=== PATIENT | male | born 1940 | race Caucasian/White ===

== ENCOUNTER 2017-08-05 10:27 | Inpatient (IN) ==
[2017-08-05] MEDS ORDERED: LEVOFLOXACIN INJ 750 MG in PREMIX 1 EACH IV STA (10:48)
[2017-08-05] MEDS ORDERED: methylPREDNISolone SOD SUC 40 MG/1 ML VIAL IV STA (10:48)
[2017-08-05] MEDS ORDERED: ALBUTEROL/IPRATROPIUM 3 ML NEB RESP TX STA (10:48)
[2017-08-05] MEDS ORDERED: methylPREDNISolone SOD SUC 40 MG/1 ML VIAL ONE (10:56)
[2017-08-05 11:16] LABS: Basophils % 0.2 % (0.0-0.8); Hemoglobin 13.7 GM/DL (14.0-18.0); Immature Granulocytes % 0.4 %; Immature Granulocytes Absolute 0.05 #; Lymphocytes # 1.3 10*3/uL (1.4-4.0); Lymphocytes % 11.1 % (21.2-54.2); Mean Corpuscular HGB Conc 31.9 GM/DL (32-36); Mean Corpuscular Hemoglobin 28 PG (27-34); Mean Corpuscular Volume 86.7 FL (87-102); Monocytes # 1.4 10*3/uL (0.11-0.8); Monocytes % 11.4 % (1.7-12.7); Neutrophils # 9.3 10*3/uL (1.4-7.4); Neutrophils % 76.9 % (38.7-73.9); Platelet Count 190 T/CUMM (130-400); Red Blood Count 4.96 MC/CUMM (3.8-5.5); Red Cell Distribution Width 14.8 % (9.3-17.3); White Blood Count 12.1 T/CUMM (4-12)
[2017-08-05] MEDS ORDERED: LEVOFLOXACIN INJ 0 ML IV ONE (11:19)
--- NOTE | 2017-08-05 11:25 | XRay Report ---
History: Shortness of breath Date: 08/05/2017 Study: Chest x-ray AP portable Comparison exam: April 04, 2016 There are stable mild cardiomegaly. The mediastinal contours are unchanged. The pulmonary vasculature is not engorged. A left subclavian multiple lead transvenous pacemaker/fibular device is generally intact and unchanged. There is no gross pleural effusion. There is some minor strandy subsegmental atelectasis in the left lung base. The lungs are otherwise clear for shallow breath. Osseous structures are unchanged. Impression: Mild strandy subsegmental atelectasis in the left lung base. Mild inflammatory infiltrate cannot be excluded. Shallow inspiration. Otherwise unchanged PROCEDURE INTERPRETED AT [facility] DEPARTMENT OF RADIOLOGY Final Report Signed by: Dr. Mary Ellen Murray
--- NOTE | 2017-08-05 11:45 | Emergency Department Note ---
Alondra Lerma Rolonda, am scribing for, and in the presence of, Rolando Haney MD 10:55. Lyndon Lerma Phillip K, MD, personally performed the services described in this documentation, ascribed by Beronica Cantu in my presence, and it is both accurate and complete . Arrival - Arrival Chief Complaint: Upper Respiratory Stated Complaint: sob,body ache,no sleep x3 days ED Nursing Triage Note: cough congestion body aches since saturday. pt wheezing in triage. Mode of Arrival: Wheelchair Limitations: No Limitations, Language Barrier Source: Old Records Reviewed, RN Notes Reviewed - History of Present Illness HPI Narrative: Pt is a 77 y/o male who presents to the ED for further evaluation of upper respiratory issues with an onset of x3 days. Pt has a PMHx of HTN and Asthma. He states that he has a cough with production and he is on his 9th bottle of collecting sputum. Pt states that he was seen at the [place] clinic this morning, was given a breathing tx, and was referred here to the ED. He denies being around anyone who has been ill. Pt confirms associated sxs of wheezing,fever, and body aches. At time of triage pt's temperature was 99.3. Pt states that he has a breathing machine at home but he has not used it in days. No other complaint/pain in ED. Onset (ago): day(s) Consistency: constant Severity: mild, moderate Severity scale (1-10): 4 Allergies/Adverse Reactions: Allergies Allergy/AdvReac Type Severity Reaction Status Date / Time No Known Allergies Allergy Verified 03/03/15 09:00 Home Medications: Home Medications Medication Instructions Recorded Confirmed Type Albuterol Inhaler [Proventil 1 puff INH Q4H PRN 08/05/17 08/05/17 History Inhaler] Allopurinol 100 mg PO BID 08/05/17 08/05/17 History Aspirin EC Tab 81 mg PO DAILY 08/05/17 08/05/17 History Betamethasone Dipropionate 1 applic TOP BID 08/05/17 08/05/17 History [Betamethasone Dipropionate 0.05% Cream] Budesonide/Formoterol 160-4.5 1 puff INH BID 08/05/17 08/05/17 History [Symbicort 160-4.5] Cholecalciferol [Vitamin D3] 2,000 unit PO DAILY 08/05/17 08/05/17 History Cyanocobalamin Inj [Vitamin B12 1,000 mcg IM Q30D 08/05/17 08/05/17 History Inj] Donepezil HCl 10 mg PO DAILY 08/05/17 08/05/17 History Fluticasone/Salmeterol 100-50 1 puff INH BID 08/05/17 08/05/17 History [Advair 100-50] Furosemide Tab [Lasix Tab] 20 mg PO DAILY 08/05/17 08/05/17 History Gabapentin Cap/Tab [Neurontin 300 mg PO BID 08/05/17 08/05/17 History Cap/Tab] Loratadine Tab [Claritin Tab] 10 mg PO DAILY PRN 08/05/17 08/05/17 History Metoprolol Tartrate 12.5 mg PO BID 08/05/17 08/05/17 History Montelukast Sodium 10 mg PO DAILY 08/05/17 08/05/17 History Multivitamin with Minerals 1 each PO DAILY 08/05/17 08/05/17 History [Multivitamins with Minerals] [place]-3/Dha/Epa/Fish Oil [Fish Oil 1 each PO DAILY 08/05/17 08/05/17 History 1,000 mg Softgel] Omeprazole 20 mg PO DAILY 08/05/17 08/05/17 History Roflumilast [Daliresp] 500 mcg PO DAILY 08/05/17 08/05/17 History Simvastatin 40 mg PO DAILY 08/05/17 08/05/17 History Tamsulosin [Flomax] 0.4 mg PO PC SUPPER 08/05/17 08/05/17 History Tiotropium Inhalation [Spiriva 18 mcg INH DAILY 08/05/17 08/05/17 History Handihaler] Valsartan 80 mg PO BEDTIME 08/05/17 08/05/17 History Review of System - Review of System 12 point system: reviewed and no additional remarkable complaints except as stated - Review of System Constitutional: Present: fever, weakness (body aches) Eyes: Absent: discharge Head/Ears/Nose/Throat: Absent: earache Respiratory: Present: cough (with production), wheezing Gastrointestinal: Absent: nausea Genitourinary male: Absent: dysuria Musculoskeletal: Absent: arm pain, back pain Skin: Absent: rash Neurological: Absent: headache Psychiatric: Absent: anxiety Endocrine: Absent: cold intolerance Hematological/Lymphatic: Absent: easy bleeding Allergic/Immunologic: Absent: facial swelling Medical,Surgical,& Family Hx - Medical History Cardio: History of: Hypertension, Pacemaker Respiratory: History of: Asthma - Social History Smoking Status: Current every day smoker Exam Vital Signs: Vital Signs Temperature 99.3 F 08/05/17 10:32 Pulse Rate 100 H 08/05/17 11:19 Respiratory Rate 20 08/05/17 11:19 Blood Pressure 100/50 08/05/17 11:15 O2 Sat by Pulse Oximetry 95 08/05/17 11:19 - General General appearance: alert, in no apparent distress - Head Head exam: Present: atraumatic, normocephalic - Eye Eye exam: Present: PERRL, EOMI - ENT ENT exam: Present: mucous membranes moist. Absent: mucous membranes dry - Neck Neck exam: Present: full ROM. Absent: tenderness - Chest Chest inspection: Present: symmetric chest wall rise. Absent: tenderness - Respiratory Respiratory exam: Present: rales (bibasilar), wheezes (diffused expiratory). Absent: normal lung sounds bilaterally - Cardiovascular Cardiovascular exam: Present: normal rhythm, tachycardia - Abdominal Exam Abdominal exam: Present: soft, normal bowel sounds. Absent: tenderness - Extremities Exam Extremities exam: Present: full ROM. Absent: tenderness - Back Exam Back exam: Present: full ROM. Absent: tenderness - Neurological Exam Neurological exam: Present: alert, oriented X3, CN II-XII intact - Psychiatric Psychiatric exam: Present: normal affect, normal mood - Skin Skin exam: Present: warm, dry, intact, normal color. Absent: rash Course Course Narrative: Patient discussed with the hospitalist. Results - Labs CBC & BMP: 08/05/17 10:52 Lab Results: I have reviewed the patients labs Labs: Laboratory Tests 08/05/17 10:52 WBC 12.1 H RBC 4.96 Hgb 13.7 L Hct 43.0 MCV 86.7 L MCHC 31.9 L Neut % (Auto) 76.9 H Lymph % (Auto) 11.1 L Neut # (Auto) 9.3 H Lymph # (Auto) 1.3 L [place] # (Auto) 1.4 H - Diagnostic Findings Procedure: Chest x-ray: report reviewed by me (Mild strandy subsegmental atelectasis in the left lung base. Mild inflammatory cannot be excluded. Shallow inspiration. Otherwise unchanged.) Disposition Clinical Impression: Left lower lobe pneumonia, Asthma with acute exacerbation Case discussed with: patient Disposition: Still a Patient Condition: Guarded Additional Instructions: Admit to the hospitalist.
[2017-08-05 11:50] LABS: Calcium 9.6 MG/DL (8.5-10.1); Osmolality,Calculated 279.7 MOS/KG (273-304); Potassium 3.7 MMOL/L (3.5-5.1)
[2017-08-05] MEDS ORDERED: ACETAMINOPHEN 325 MG TABLET PO PRN (13:56)
[2017-08-05] MEDS ORDERED: LORATADINE 10 MG TABLET PO PRN (14:00)
[2017-08-05] MEDS ORDERED: ONDANSETRON 4 MG/2 ML VIAL IV PRN (14:00)
[2017-08-05] MEDS ORDERED: ALBUTEROL/IPRATROPIUM 3 ML NEB RESP TX PRN (15:00)
--- NOTE | 2017-08-05 15:04 | Hospitalist History & Physical ---
<Von Kim - Last Filed: 08/05/17 14:31> Assessment and Plan (1) Left lower lobe pneumonia Status: Acute Assessment and plan: Treat with IV antibiotics (Levaquin). Breathing treatments scheduled. IVF ordered. Current Visit: Yes (2) Asthma with acute exacerbation Status: Acute Assessment and plan: Restart home meds. Consult Dr. Angelo. IV steroids. Breathing treatments scheduled. Continue to monitor. Current Visit: Yes (3) Leukocytosis Status: Acute Assessment and plan: WBC 12.1. Blood cultures ordered stat. UA ordered. Recheck cbc in am. Current Visit: Yes History of Present Illness Chief complaint: cough and shortness of breath. History of present illness: Mr. Curtis is a 77 year old male white male patient with a history of asthma, hypertension, and a pacemaker that presented to the ED from [place] clinic for further evaluation of upper respiratory issues. Pt. stated that the symptoms began on Saturday with a cough and shortness of breath. Pt. reports using his albuterol inhaler for the shortness of breath but that it was only temporarily relieved. Pt. states that since that time, the cough has worsened and become productive (thick white) and the shortness of breath has progressed. Pt. reports a subjective fever, chills, but no night sweats. Pt. denies chest pain, nausea, vomiting, or diarrhea. Pt. reported to the [place] clinic this morning, received a treatment, and was referred here. Pt's temp in triage was 99.3. CXR showed 'mild strandy subsegmental atelectasis in the left lung base and mild inflammatory infiltrate' cannot be excluded. Pt's case has been discussed with ER physician and hospitalist Dr. Hector. Pt. has been accepted onto our service. Pt. will be admitted for treatment of asthma exacerbation and pneumonia. Home meds have been reviewed and reconciled. Home Medications Medication Instructions Recorded Confirmed Type Albuterol Inhaler [Proventil 1 puff INH Q4H PRN 08/05/17 08/05/17 History Inhaler] Allopurinol 100 mg PO BID 08/05/17 08/05/17 History Aspirin EC Tab 81 mg PO DAILY 08/05/17 08/05/17 History Betamethasone Dipropionate 1 applic TOP BID 08/05/17 08/05/17 History [Betamethasone Dipropionate 0.05% Cream] Budesonide/Formoterol 160-4.5 1 puff INH BID 08/05/17 08/05/17 History [Symbicort 160-4.5] Cholecalciferol [Vitamin D3] 2,000 unit PO DAILY 08/05/17 08/05/17 History Cyanocobalamin Inj [Vitamin B12 1,000 mcg IM Q30D 08/05/17 08/05/17 History Inj] Donepezil HCl 10 mg PO DAILY 08/05/17 08/05/17 History Fluticasone/Salmeterol 100-50 1 puff INH BID 08/05/17 08/05/17 History [Advair 100-50] Furosemide Tab [Lasix Tab] 20 mg PO DAILY 08/05/17 08/05/17 History Gabapentin Cap/Tab [Neurontin 300 mg PO BID 08/05/17 08/05/17 History Cap/Tab] Loratadine Tab [Claritin Tab] 10 mg PO DAILY PRN 08/05/17 08/05/17 History Metoprolol Tartrate 12.5 mg PO BID 08/05/17 08/05/17 History Montelukast Sodium 10 mg PO DAILY 08/05/17 08/05/17 History Multivitamin with Minerals 1 each PO DAILY 08/05/17 08/05/17 History [Multivitamins with Minerals] [place]-3/Dha/Epa/Fish Oil [Fish Oil 1 each PO DAILY 08/05/17 08/05/17 History 1,000 mg Softgel] Omeprazole 20 mg PO DAILY 08/05/17 08/05/17 History Roflumilast [Daliresp] 500 mcg PO DAILY 08/05/17 08/05/17 History Simvastatin 20 mg PO PC SUPPER 08/05/17 08/05/17 History Tamsulosin [Flomax] 0.4 mg PO PC SUPPER 08/05/17 08/05/17 History Tiotropium Inhalation [Spiriva 18 mcg INH DAILY 08/05/17 08/05/17 History Handihaler] Valsartan 80 mg PO BEDTIME 08/05/17 08/05/17 History Allergies Allergy/AdvReac Type Severity Reaction Status Date / Time No Known Allergies Allergy Verified 03/03/15 09:00 Medical,Surgical,& Family Hx - Medical History Cardio: History of: Cardiac Dysrhythmia, Hypertension, [place] (1996), Pacemaker No history of: Aneurysm, Cerebrovascular Disease, CHF Psychological: History of: Depression (PTSD) Neurology: No history of: Brain Aneurysm, Cerebral Hemorrhage, Cerebrovascular Accident , Cerebral Palsy, Dementia, Migraine, Multiple Sclerosis, Parkinson's Disease, Peripheral Neuropathy, Seizures, TIA, Vertigo, Neurologocal Cancer HEENT: History of: Dental Problems Rheumatology: History of;: Gout Respiratory: History of: Asthma Genitourinary: History of: Kidney Stones Gastrointestinal: History of: Hemorrhoids Musculoskeletal: History of: Back/Neck Problems - Surgical History Neurologic Surgeries: Patient denies: Brain Aneurysm, Cerebral Hemorrhage, Neurologic Surgery Abdominal Surgeries: Surgical HX of: Cholecystectomy - Family History Family History: Reports;: Family Heart Disease, Family Psychiatric Problems Denies;: Family Anesthesia Reaction - Social History Smoking Status: Former smoker Frequency of Alcohol Use: Rarely Type of Drug Use: None Marital Status: Lives With:: Spouse Functional capacity: uses cane/walker 12 point system: reviewed and no additional remarkable complaints except as stated - EENT Ears: Present: decreased hearing - Cardiovascular Cardiovascular: Absent: chest pain at rest - Respiratory Respiratory: Present: cough, dyspnea, wheezing, change in phlegm color. Absent : hemoptysis Exam - Constitutional Vitals: Period Temp Pulse Resp BP Sys/Bergeron Pulse Ox Last 24 Hr 98.8 F-99.3 F 96-103 18-26 100-147/48-80 93-98 General appearance: no acute distress, over weight - Head Head exam: Present: normal inspection, normocephalic - Eye Eye exam: Present: EOMI Pupils: Present: LYNN - Respiratory Respiratory exam: Present: wheezes. Absent: clear to auscultation bilaterally - Cardiovascular Cardiovascular exam: Present: regular rate and rhythm - GI/Abdominal GI/Abdominal exam: Present: normal bowel sounds, soft. Absent: tenderness - Extremities Exam Extremities exam: Present: normal capillary refill, edema (trace) - Neurological Exam Neurological exam: Present: alert, oriented X3 - Psychiatric Psychiatric exam: Present: normal affect, normal mood - Skin Skin exam: Present: normal color, warm, dry Results - Labs CBC & BMP: 08/05/17 10:52 08/05/17 10:52 Lab Results: I have reviewed the past 24 hour labs <Sandra Hector - Last Filed: 08/06/17 12:01> Assessment and Plan (1) Left lower lobe pneumonia Status: Acute Current Visit: Yes (2) Asthma with acute exacerbation Status: Acute Current Visit: Yes (3) Cardiomyopathy Status: Acute Current Visit: Yes (4) Sleep apnea Status: Acute Current Visit: Yes (5) Hyperlipidemia Status: Acute Current Visit: Yes History of Present Illness History of present illness: Mr. Curtis is a 77 year old male admitted for acute respiratory distress and pneumonia. Patient was seen, examined and discussed with the A[employer]IC[employer] IN[employer]. I agree with the current management. Exam - Constitutional Vitals: Period Temp Pulse Resp BP Sys/Bergeron Pulse Ox Last 24 Hr 97.3 F-98.8 F 67-103 16-20 105-142/54-80 90-98 Results - Labs CBC & BMP: 08/06/17 05:04 08/06/17 05:04
[2017-08-05] MEDS ORDERED: ALBUTEROL 2.5 MG/3 ML NEB RESP TX PRN (15:30)
[2017-08-05] MEDS: SODIUM CHLORIDE 0.9% 1,000 ML IV SCH (16:00)
[2017-08-05] MEDS: MULTIVITAMIN (BEROCCA) TABLET PO SCH (16:40)
[2017-08-05] MEDS: LEVOFLOXACIN INJ 750 MG in PREMIX 1 EACH IV SCH (17:27)
[2017-08-05] MEDS: TAMSULOSIN 0.4 MG CAPSULE PO SCH (17:36)
[2017-08-05] MEDS: methylPREDNISolone SOD SUC 40 MG/1 ML VIAL IV SCH ×2 (17:37→20:28)
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
[2017-08-05] MEDS: BUDESONIDE 0.5 MG/2 ML NEB RESP TX SCH (19:22)
[2017-08-05] MEDS: FLUTICASONE/SALMETEROL 100-50 DISKUS 14 DOSE INH SCH (20:28)
[2017-08-05] MEDS: GABAPENTIN 300 MG CAPSULE PO SCH (20:28)
[2017-08-05] MEDS: BUDESONIDE/FORMOTEROL 160-4.5 INHALER 6 GM INH SCH (20:28)
[2017-08-05] MEDS: METOPROLOL TARTRATE 25 MG TABLET PO SCH (20:29)
[2017-08-06 00:31] LABS: Apearance,Urine Slightly Hazy (Clear); Bilirubin,Urine Negative (Negative); Blood, Urine Negative (Negative); Glucose,Urine (UA) Negative (Negative); Ketones,Urine 5 mg/dL (Negative); Mucus,Urine Many /LPF (Occasional); Nitrite,Urine Negative (Negative); Protein,Urine 100 MG/DL; RBC,Urine 3 /HPF (0-4); Urine Color Amber (Yellow); Urine Specific Gravity 1.027 (1.001-1.035); WBC,Urine 1 /HPF (0-6)
[2017-08-06] MEDS: methylPREDNISolone SOD SUC 40 MG/1 ML VIAL IV SCH ×4 (02:04→21:12)
[2017-08-06 05:43] LABS: Basophils % 0.1 % (0.0-0.8); Hematocrit 38.6 VOL% (42.0-52.0); Hemoglobin 12.7 GM/DL (14.0-18.0); Immature Granulocytes % 0.9 %; Lymphocytes # 0.6 10*3/uL (1.4-4.0); Lymphocytes % 5.7 % (21.2-54.2); Mean Corpuscular HGB Conc 32.9 GM/DL (32-36); Mean Corpuscular Hemoglobin 28 PG (27-34); Mean Corpuscular Volume 84.5 FL (87-102); Mean Platelet Volume 10.4 FL (9.6-12.0); Monocytes # 0.3 10*3/uL (0.11-0.8); Monocytes % 2.6 % (1.7-12.7); Neutrophils # 10.1 10*3/uL (1.4-7.4); Neutrophils % 90.7 % (38.7-73.9); Platelet Count 177 T/CUMM (130-400); Red Blood Count 4.57 MC/CUMM (3.8-5.5); Red Cell Distribution Width 14.6 % (9.3-17.3); White Blood Count 11.2 T/CUMM (4-12)
[2017-08-06 06:12] LABS: Band Neutrophils 2 % (0-10); Burr Cells Slight; Hypochromasia 1+; Lymphocytes 6 % (20-55); Microcytosis Slight; Ovalocytes Slight; Platelet Estimate Normal; Segmented Neutrophils 88 % (50-85); Total Cells Counted 100
[2017-08-06 06:22] LABS: Calcium 9.2 MG/DL (8.5-10.1); Magnesium 2.3 MG/DL (1.8-2.4); Osmolality,Calculated 287.5 MOS/KG (273-304); Potassium 3.6 MMOL/L (3.5-5.1); Risk Ratio 3.11; Thyroid Stimulating Hormone 0.334 uIU/ml (0.358-3.74); VLDL CHOLESTEROL 15.6 MG/DL
[2017-08-06] MEDS: BUDESONIDE 0.5 MG/2 ML NEB RESP TX SCH ×2 (06:53→19:26)
[2017-08-06] MEDS ORDERED: IPRATROPIUM 500 MCG/2.5 ML NEB RESP TX SCH (07:00)
[2017-08-06] MEDS: PANTOPRAZOLE 40 MG TABLET PO SCH (09:10)
[2017-08-06] MEDS: METOPROLOL TARTRATE 25 MG TABLET PO SCH ×2 (09:10→21:13)
[2017-08-06] MEDS: MONTELUKAST 10 MG TABLET PO SCH (09:11)
[2017-08-06] MEDS: ASPIRIN EC 81 MG TABLET PO SCH (09:11)
[2017-08-06] MEDS: GABAPENTIN 300 MG CAPSULE PO SCH ×2 (09:11→21:13)
[2017-08-06] MEDS: SIMVASTATIN 40 MG TABLET PO SCH (09:11)
[2017-08-06] MEDS: DONEPEZIL 10 MG TABLET PO SCH (09:11)
[2017-08-06] MEDS: CHOLECALCIFEROL 1,000 UNIT TABLET PO SCH (09:11)
[2017-08-06] MEDS: FLUTICASONE/SALMETEROL 100-50 DISKUS 14 DOSE INH SCH ×2 (09:12→21:13)
[2017-08-06] MEDS: OMEGA 3 ACID ETHYL ESTERS 1 GM CAPSULE PO SCH (09:12)
[2017-08-06] MEDS: BUDESONIDE/FORMOTEROL 160-4.5 INHALER 6 GM INH SCH ×2 (09:12→21:13)
[2017-08-06] MEDS: ENOXAPARIN 30 MG/0.3 ML SYRINGE SUBCUT SCH (09:13)
--- NOTE | 2017-08-06 09:53 | XRay Report ---
XR chest 2V Indication: COPD, shortness of breath and cough. Chest 2 views: Comparison 08/05/2017. Continued reticular prominence of the left lung base noted. Right lung base is better aerated than previous with general decreased interstitial prominence of the lungs. Normal heart size and pacemaker are stable. Impression: Improved aeration of the lungs, likely decreased edema. Continued opacity left lung base, either pneumonia or atelectasis. PROCEDURE INTERPRETED AT [facility] DEPARTMENT OF RADIOLOGY Final Report Signed by: Salty Messina M.D.
--- NOTE | 2017-08-06 10:32 | Pulmonology Progress Note ---
Pulmonary - PN: Subj Interval history: Juan Velazquez, [facility] acting as scribe for Dr. Koffi Angelo Mr. Curtis is a 77-year-old white male who we saw in initial pulmonary consultation on 08/05/2017. At that time, our impressions were: 1. Acute left lower lung pneumonia. Probably bacterial 2. COPD/asthma 3. Hyperlipidemia 4. Chronic lumbago 5. Gastroesophageal reflux disease 6. 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 Biventricular assist device. 7. History of sick sinus syndrome that required cardiac pacemaker. 8. Past history of possible cognitive impairment that is improved over time with treatment. 9. Bilateral upper extremity tremor, greater on the right as compared to the left 10. 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 Markedly improved with CPAP 11. Past history of tobacco abuse. Stopped smoking 1993. 08/06/2017. Patient was seen today along with Elizabeth Ronquillo RN. Patient's chest x-ray continues to show an acute left lower lobe pneumonia, however, it is slowly improving with better aeration. Sputum for Gram stain, culture and sensitivity is pending. Cold agglutinins are negative. Legionella, pro- calcitonin, and urine antigen for strep pneumoniae are pending. On chest exam he continues to have loose large airway congestion. He is receiving inhalation therapy. We have asked him to be ambulatory and he agrees. Medications have been reviewed. We made no changes today. Labs been reviewed. White count has fallen to 11,200 with 90.7% segs; H&H 12.7/ 38.6; platelet count 177,000; creatinine has improved to 1.50, BUN 33, electrolytes are normal; hemoglobin A1c 5.6%; calcium 9.2; TSH is low at 0.334 but free T4 is normal at 1.46; fasting lipoprotein profile shows a total cholesterol of 146, LDL 84, HDL 47, and triglycerides 78; BNP 24 Exam (Progress Note) - Constitutional Vitals: Period Temp Pulse Resp BP Sys/Bergeron Pulse Ox Last 24 Hr 97.3 F-99.3 F 67-103 16-26 100-147/48-80 90-98 Exam: Chest... See above Heart no gallop Abdomen is obese, but nontender and nondistended; bowel sounds are positive 4 Extremities with nothing to suggest acute deep venous thrombophlebitis Psychiatric oriented 3 Neurologic long-term motor function is intact Plan: Continue present treatment. Follow-up pending lab results when available. Follow up sputum Gram stain, culture and sensitivities when available. See orders. Results - Labs CBC & BMP: 08/06/17 05:04 08/06/17 05:04
[2017-08-06] MEDS: SODIUM CHLORIDE 0.9% 1,000 ML IV SCH (10:38)
--- NOTE | 2017-08-06 10:46 | Hospitalist Progress Note ---
Assessment and Plan (1) Left lower lobe pneumonia Status: Acute Assessment and plan: will continue with IV antibiotics,negative for influenza Aand B. Pulm is following Current Visit: Yes (2) Asthma with acute exacerbation Status: Acute Assessment and plan: continue with steroids, bronchodilators and antibiotics Current Visit: Yes (3) Cardiomyopathy Status: Acute Assessment and plan: Severe cardiomyopathy with ejection fraction 10%.Appears stable. Patient has a pacemaker. 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 Markedly improved with CPAP Current Visit: Yes (5) Hyperlipidemia Status: Acute Assessment and plan: on statins Current Visit: Yes Hospitalist: Subjective Interval history: Patient seen this am,he is still wheezing but feels much better. Exam - Constitutional Vitals: Period Temp Pulse Resp BP Sys/Bergeron Pulse Ox Last 24 Hr 97.3 F-98.8 F 67-103 16-20 100-142/48-80 90-98 General appearance: no acute distress - Head Head exam: Present: normal inspection - Eye Eye exam: Present: EOMI - ENT ENT exam: Present: normal exam - Respiratory Respiratory exam: Present: rhonchi, wheezes - Cardiovascular Cardiovascular exam: Present: regular rate and rhythm - GI/Abdominal GI/Abdominal exam: Present: normal bowel sounds - Extremities Exam Extremities exam: Present: normal inspection - Neurological Exam Neurological exam: Present: alert, oriented X3 Results - Labs CBC & BMP: 08/06/17 05:04 08/06/17 05:04 Lab Results: I have reviewed the past 24 hour labs
[2017-08-06] MEDS: LEVOFLOXACIN INJ 750 MG in PREMIX 1 EACH IV SCH (14:44)
[2017-08-06] MEDS: MULTIVITAMIN (BEROCCA) TABLET PO SCH (16:14)
[2017-08-06] MEDS: TAMSULOSIN 0.4 MG CAPSULE PO SCH (17:56)
[2017-08-07] MEDS: methylPREDNISolone SOD SUC 40 MG/1 ML VIAL IV SCH ×4 (01:38→21:12)
[2017-08-07 05:15] LABS: Basophils % 0.1 % (0.0-0.8); Hematocrit 34.9 VOL% (42.0-52.0); Hemoglobin 11.6 GM/DL (14.0-18.0); Immature Granulocytes % 1.4 %; Immature Granulocytes Absolute 0.22 #; Lymphocytes # 0.9 10*3/uL (1.4-4.0); Lymphocytes % 5.7 % (21.2-54.2); Mean Corpuscular HGB Conc 33.2 GM/DL (32-36); Mean Corpuscular Hemoglobin 28 PG (27-34); Mean Corpuscular Volume 84.1 FL (87-102); Mean Platelet Volume 10.1 FL (9.6-12.0); Monocytes # 0.6 10*3/uL (0.11-0.8); Monocytes % 3.5 % (1.7-12.7); Neutrophils # 14.3 10*3/uL (1.4-7.4); Neutrophils % 89.3 % (38.7-73.9); Platelet Count 184 T/CUMM (130-400); Red Blood Count 4.15 MC/CUMM (3.8-5.5); Red Cell Distribution Width 14.6 % (9.3-17.3)
[2017-08-07 06:02] LABS: Calcium 8.5 MG/DL (8.5-10.1); Magnesium 2.3 MG/DL (1.8-2.4); Potassium 3.7 MMOL/L (3.5-5.1)
[2017-08-07 06:39] LABS: Band Neutrophils 4 % (0-10); Hypochromasia Slight; Lymphocytes 3 % (20-55); Platelet Estimate Adequate; Segmented Neutrophils 93 % (50-85); Total Cells Counted 100
[2017-08-07] MEDS: BUDESONIDE 0.5 MG/2 ML NEB RESP TX SCH ×2 (08:45→19:15)
[2017-08-07] MEDS: SODIUM CHLORIDE 0.9% 1,000 ML IV SCH (09:01)
[2017-08-07] MEDS: ASPIRIN EC 81 MG TABLET PO SCH (09:02)
[2017-08-07] MEDS: CHOLECALCIFEROL 1,000 UNIT TABLET PO SCH (09:02)
[2017-08-07] MEDS: BUDESONIDE/FORMOTEROL 160-4.5 INHALER 6 GM INH SCH ×2 (09:02→21:14)
[2017-08-07] MEDS: FLUTICASONE/SALMETEROL 100-50 DISKUS 14 DOSE INH SCH ×2 (09:02→21:14)
[2017-08-07] MEDS: ENOXAPARIN 30 MG/0.3 ML SYRINGE SUBCUT SCH (09:02)
[2017-08-07] MEDS: MONTELUKAST 10 MG TABLET PO SCH (09:03)
[2017-08-07] MEDS: OMEGA 3 ACID ETHYL ESTERS 1 GM CAPSULE PO SCH (09:03)
[2017-08-07] MEDS: GABAPENTIN 300 MG CAPSULE PO SCH ×2 (09:03→21:13)
[2017-08-07] MEDS: SIMVASTATIN 40 MG TABLET PO SCH (09:03)
[2017-08-07] MEDS: METOPROLOL TARTRATE 25 MG TABLET PO SCH ×2 (09:03→21:13)
[2017-08-07] MEDS: PANTOPRAZOLE 40 MG TABLET PO SCH (09:03)
[2017-08-07] MEDS: DONEPEZIL 10 MG TABLET PO SCH (09:03)
--- NOTE | 2017-08-07 10:34 | Pulmonology Progress Note ---
Pulmonary - PN: Subj Interval history: Juan Velazquez, [facility], acting as scribe for Dr. Koffi Angelo Mr. Curtis is a 77-year-old white male who we saw in initial pulmonary consultation on 08/05/2017. At that time, our impressions were: 1. Acute left lower lung pneumonia. Probably bacterial 2. COPD/asthma 3. Hyperlipidemia 4. Chronic lumbago 5. Gastroesophageal reflux disease 6. 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 Biventricular assist device. 7. History of sick sinus syndrome that required cardiac pacemaker. 8. Past history of possible cognitive impairment that is improved over time with treatment. 9. Bilateral upper extremity tremor, greater on the right as compared to the left 10. 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 Markedly improved with CPAP 11. Past history of tobacco abuse. Stopped smoking 1993. 08/06/2017. Patient was seen today along with Elizabeth Ronquilol RN. Patient's chest x-ray continues to show an acute left lower lobe pneumonia, however, it is slowly improving with better aeration. Sputum for Gram stain, culture and sensitivity is pending. Cold agglutinins are negative. Legionella, pro- calcitonin, and urine antigen for strep pneumoniae are pending. On chest exam he continues to have loose large airway congestion. He is receiving inhalation therapy. We have asked him to be ambulatory and he agrees. Medications have been reviewed. We made no changes today. Labs been reviewed. White count has fallen to 11,200 with 90.7% segs; H&H 12.7/ 38.6; platelet count 177,000; creatinine has improved to 1.50, BUN 33, electrolytes are normal; hemoglobin A1c 5.6%; calcium 9.2; TSH is low at 0.334 but free T4 is normal at 1.46; fasting lipoprotein profile shows a total cholesterol of 146, LDL 84, HDL 47, and triglycerides 78; BNP 24 08/07/2017. The patient has more large airway wheeze today. He has more large airway congestion also. He needs to expectorate this, so we will add Pulmozyme twice daily. Once this clears, his wheezing were markedly improved. Overall, he feels improved since admission. Again, he is anticipating orthopedic surgery early next week and hopes to be discharged on Saturday. Will repeat chest x-ray tomorrow. Today's chest x-ray continues to show a left lower lobe and lingula infiltrate. Sputum Gram stain showed many gram-negative rods with many white blood cells, but sputum culture grew no organisms. Blood cultures are negative at day 1. Medications have been reviewed. We made no changes today other than the addition of Pulmozyme twice daily. Labs been reviewed. White count is 16,000 with 89.3% segs; H&H 11.6/34.9; platelet count 184,000; creatinine 1.40, BUN 38, electrolytes are normal Exam (Progress Note) - Constitutional Vitals: Period Temp Pulse Resp BP Sys/Bergeron Pulse Ox Last 24 Hr 97.2 F-98.9 F 69-103 16-20 122-149/56-78 89-96 Exam: Chest... See above Heart no gallop Abdomen is obese, but nontender and nondistended; bowel sounds are positive 4 Extremities with nothing to suggest acute deep venous thrombophlebitis Psychiatric oriented 3 Neurologic long-term motor function is intact Plan: Start Pulmozyme twice daily. Repeat chest x-ray tomorrow. Repeat CBC tomorrow. Continue other present treatment. See orders. Results - Labs CBC & BMP: 08/07/17 04:55 08/07/17 04:55
[2017-08-07] MEDS: DORNASE ALFA 2.5 MG/2.5 ML VIAL RESP TX SCH ×2 (10:45→19:20)
--- NOTE | 2017-08-07 11:27 | Hospitalist Progress Note ---
Assessment and Plan (1) Left lower lobe pneumonia Status: Acute Assessment and plan: Treat with IV antibiotics (Levaquin). Breathing treatments scheduled. IVF ordered. 08/07 DC IVF. Continue IV antibiotics. Current Visit: Yes (2) Asthma with acute exacerbation Status: Acute Assessment and plan: Restart home meds. Consult Dr. Angelo. IV steroids. Breathing treatments scheduled. Continue to monitor. Supplemental O2. 08/07 Pulmonary following. (Pulmozyme twice daily was added. CXR for in am) Current Visit: Yes (3) Leukocytosis Status: Acute Assessment and plan: WBC 12.1. Blood cultures ordered stat. UA ordered. Recheck cbc in am. 08/07 WBC up to 16 today. Probably secondary to steroid use. Check UA Current Visit: Yes Hospitalist: Subjective Interval history: Patient seen and examined this morning. Labs and chart reviewed. No acute changes occurred overnight. Pt resting comfortably during encounter. Pt. states he is "100%" better than he was on Saturday. He still has wheezes present on auscultation and reports that his productive cough has resurfaced. Pt makes request for home O2 on discharge. We will continue current plan of treatment. Exam - Constitutional Vitals: Period Temp Pulse Resp BP Sys/Bergeron Pulse Ox Last 24 Hr 97.2 F-98.9 F 69-103 16-20 123-149/64-78 89-96 General appearance: no acute distress, over weight - Head Head exam: Present: normal inspection, normocephalic - Eye Eye exam: Present: EOMI Pupils: Present: LYNN - Neck Neck exam: Present: normal inspection - Respiratory Respiratory exam: Present: wheezes. Absent: clear to auscultation bilaterally - Cardiovascular Cardiovascular exam: Present: regular rate and rhythm - GI/Abdominal GI/Abdominal exam: Present: normal bowel sounds, soft. Absent: tenderness - Extremities Exam Extremities exam: Present: normal capillary refill, full ROM, edema (trace) - Neurological Exam Neurological exam: Present: alert, oriented X3 - Psychiatric Psychiatric exam: Present: normal affect, normal mood - Skin Skin exam: Present: normal color, warm, dry Results - Labs CBC & BMP: 08/07/17 04:55 08/07/17 04:55 Lab Results: I have reviewed the past 24 hour labs
[2017-08-07] MEDS: MULTIVITAMIN (BEROCCA) TABLET PO SCH (14:34)
[2017-08-07] MEDS: LEVOFLOXACIN INJ 750 MG in PREMIX 1 EACH IV SCH (14:35)
[2017-08-07] MEDS: TAMSULOSIN 0.4 MG CAPSULE PO SCH (18:17)
[2017-08-08] MEDS: methylPREDNISolone SOD SUC 40 MG/1 ML VIAL IV SCH ×3 (02:55→20:55)
[2017-08-08 06:25] LABS: Basophils % 0.3 % (0.0-0.8); Hematocrit 36.5 VOL% (42.0-52.0); Immature Granulocytes % 2.8 %; Immature Granulocytes Absolute 0.42 #; Lymphocytes # 0.9 10*3/uL (1.4-4.0); Lymphocytes % 5.8 % (21.2-54.2); Mean Corpuscular HGB Conc 32.9 GM/DL (32-36); Mean Corpuscular Hemoglobin 28 PG (27-34); Mean Corpuscular Volume 84.3 FL (87-102); Monocytes # 0.5 10*3/uL (0.11-0.8); Neutrophils # 13.2 10*3/uL (1.4-7.4); Neutrophils % 88.1 % (38.7-73.9); Platelet Count 177 T/CUMM (130-400); Red Blood Count 4.33 MC/CUMM (3.8-5.5); Red Cell Distribution Width 14.6 % (9.3-17.3)
[2017-08-08 07:01] LABS: Band Neutrophils 2 % (0-10); Lymphocytes 5 % (20-55); Segmented Neutrophils 89 % (50-85); Total Cells Counted 100
[2017-08-08 07:02] LABS: Hypochromasia Slight; Ovalocytes 1+; Platelet Estimate Normal
[2017-08-08] MEDS: BUDESONIDE 0.5 MG/2 ML NEB RESP TX SCH ×2 (07:26→20:21)
[2017-08-08] MEDS: DORNASE ALFA 2.5 MG/2.5 ML VIAL RESP TX SCH ×2 (07:36→20:21)
[2017-08-08] MEDS: PANTOPRAZOLE 40 MG TABLET PO SCH (08:51)
[2017-08-08] MEDS: CHOLECALCIFEROL 1,000 UNIT TABLET PO SCH (08:51)
[2017-08-08] MEDS: GABAPENTIN 300 MG CAPSULE PO SCH ×2 (08:51→20:56)
[2017-08-08] MEDS: DONEPEZIL 10 MG TABLET PO SCH (08:51)
[2017-08-08] MEDS: METOPROLOL TARTRATE 25 MG TABLET PO SCH ×2 (08:51→20:55)
[2017-08-08] MEDS: BUDESONIDE/FORMOTEROL 160-4.5 INHALER 6 GM INH SCH ×2 (08:52→20:56)
[2017-08-08] MEDS: MONTELUKAST 10 MG TABLET PO SCH (08:52)
[2017-08-08] MEDS: OMEGA 3 ACID ETHYL ESTERS 1 GM CAPSULE PO SCH (08:52)
[2017-08-08] MEDS: ASPIRIN EC 81 MG TABLET PO SCH (08:52)
[2017-08-08] MEDS: ENOXAPARIN 30 MG/0.3 ML SYRINGE SUBCUT SCH (08:52)
[2017-08-08] MEDS: FLUTICASONE/SALMETEROL 100-50 DISKUS 14 DOSE INH SCH ×2 (08:52→20:56)
[2017-08-08] MEDS: SIMVASTATIN 40 MG TABLET PO SCH (08:52)
--- NOTE | 2017-08-08 09:00 | XRay Report ---
XR chest 2V Date: 08/08/2017 4:00 AM History: Pneumonia Comparison: 08/06/2017 Technique: PA and lateral chest Findings: The heart is normal in size with stable left subclavian atrioventricular AICD. Reduced parenchymal findings at the left lung base with smaller left pleural effusion. Stable mediastinum and osseous structures. Impression: Improved pneumonia at the left lung base with reduced atelectasis and smaller small left pleural effusion. Stable left subclavian atrioventricular AICD. PROCEDURE INTERPRETED AT [facility] DEPARTMENT OF RADIOLOGY Final Report Signed by: Dr. Uzma Birmingham
--- NOTE | 2017-08-08 11:24 | Pulmonology Progress Note ---
Pulmonary - PN: Subj Interval history: Juan Velazquez, [facility], acting as scribe for Dr. Koffi Angelo Mr. Curtis is a 77-year-old white male who we saw in initial pulmonary consultation on 08/05/2017. At that time, our impressions were: 1. Acute left lower lung pneumonia. Probably bacterial 2. COPD/asthma 3. Hyperlipidemia 4. Chronic lumbago 5. Gastroesophageal reflux disease 6. 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 Biventricular assist device. 7. History of sick sinus syndrome that required cardiac pacemaker. 8. Past history of possible cognitive impairment that is improved over time with treatment. 9. Bilateral upper extremity tremor, greater on the right as compared to the left 10. 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 Markedly improved with CPAP 11. Past history of tobacco abuse. Stopped smoking 1993. 08/06/2017. Patient was seen today along with Elizabeth Ronquillo RN. Patient's chest x-ray continues to show an acute left lower lobe pneumonia, however, it is slowly improving with better aeration. Sputum for Gram stain, culture and sensitivity is pending. Cold agglutinins are negative. Legionella, pro- calcitonin, and urine antigen for strep pneumoniae are pending. On chest exam he continues to have loose large airway congestion. He is receiving inhalation therapy. We have asked him to be ambulatory and he agrees. Medications have been reviewed. We made no changes today. Labs been reviewed. White count has fallen to 11,200 with 90.7% segs; H&H 12.7/ 38.6; platelet count 177,000; creatinine has improved to 1.50, BUN 33, electrolytes are normal; hemoglobin A1c 5.6%; calcium 9.2; TSH is low at 0.334 but free T4 is normal at 1.46; fasting lipoprotein profile shows a total cholesterol of 146, LDL 84, HDL 47, and triglycerides 78; BNP 24 08/07/2017. The patient has more large airway wheeze today. He has more large airway congestion also. He needs to expectorate this, so we will add Pulmozyme twice daily. Once this clears, his wheezing were markedly improved. Overall, he feels improved since admission. Again, he is anticipating orthopedic surgery early next week and hopes to be discharged on Saturday. Will repeat chest x-ray tomorrow. Today's chest x-ray continues to show a left lower lobe and lingula infiltrate. Sputum Gram stain showed many gram-negative rods with many white blood cells, but sputum culture grew no organisms. Blood cultures are negative at day 1. Medications have been reviewed. We made no changes today other than the addition of Pulmozyme twice daily. Labs been reviewed. White count is 16,000 with 89.3% segs; H&H 11.6/34.9; platelet count 184,000; creatinine 1.40, BUN 38, electrolytes are normal 08/08/2017. Today we have discussed the case with Dr. Savage and coordinated our care. We both feel that it would probably be in the patient's best interest to put off his planned orthopedic surgery for another week or 2 and continue oral antibiotics[address] Dr. [facility]. However, if they cannot get to the patient in a timely manner we would agree to him proceeding next week with his knee replacement. Chest x-ray today shows that his previously noted infiltrate is clearing. He states that he is breathing better. He has remained afebrile. Medications have been reviewed. We made no changes. Labs been reviewed. White count is 15,000 with 80.1% segs; H&H 12.0/36.5; platelet count 177,000; pro-calcitonin obtained at admission was elevated at 0.69; Legionella is still pending Exam (Progress Note) - Constitutional Vitals: Period Temp Pulse Resp BP Sys/Bergeron Pulse Ox Last 24 Hr 97.2 F-97.7 F 57-77 18-22 116-137/58-78 91-99 Exam: Chest with less wheeze and less congestion Heart no gallop Abdomen is obese, but nontender and nondistended; bowel sounds are positive 4 Extremities with nothing to suggest acute deep venous thrombophlebitis Psychiatric oriented 3 Neurologic long-term motor function is intact Plan: Continue present treatment. The patient should be ready for discharge tomorrow. We will follow-up Dr. Savage's conversation with the [facility] regarding [facility]. Results - Labs CBC & BMP: 08/08/17 05:01 08/07/17 04:55
--- NOTE | 2017-08-08 11:52 | Hospitalist Progress Note ---
Assessment and Plan (1) Left lower lobe pneumonia Status: Acute Assessment and plan: 1)pneumonia and asthma- doing better each day. Plan for home tomorrow on steroid taper and antibiotics. Decrease steroids to 60mg q12h today. continue nebs, antibiotics. 2)knee surgery- his surgeon is going to rearrange the August schedule and let Mr Curtis know of a date later in August for his surgery so that he can recover fully prior to surgery. Current Visit: Yes (2) Asthma with acute exacerbation Status: Acute Current Visit: Yes (3) Cardiomyopathy Status: Acute Current Visit: Yes (4) Sleep apnea Status: Acute Current Visit: Yes (5) Hyperlipidemia Status: Acute Current Visit: Yes Hospitalist: Subjective Interval history: Mr Curtis is feeling good though he is still wheezing. I have coordinated care with Dr Angelo who agrees that he should be able to go home tomorrow. In addition [facility] called [facility] and spoke to a series of people including his orthopedic surgeon who asked me to let Mr Curtis know that he is working on rescheduling him for later in August and that he should receive a call from the [facility] to give him the new date in the next day or so. The people I spoke with at the [facility] were very helpful. Exam - Constitutional Vitals: Period Temp Pulse Resp BP Sys/Bergeron Pulse Ox Last 24 Hr 97.2 F-98.1 F 56-77 16-22 116-137/58-78 91-99 General appearance: no acute distress, over weight - Eye Eye exam: Present: EOMI. Absent: scleral icterus - Respiratory Respiratory exam: Present: wheezes (exp wheezing throughout) - Cardiovascular Cardiovascular exam: Present: regular rate and rhythm - GI/Abdominal GI/Abdominal exam: Present: normal bowel sounds, soft. Absent: tenderness - Extremities Exam Extremities exam: Absent: edema Results - Labs CBC & BMP: 08/08/17 05:01 08/07/17 04:55 Lab Results: I have reviewed the past 24 hour labs
[2017-08-08] MEDS: MULTIVITAMIN (BEROCCA) TABLET PO SCH (13:59)
[2017-08-08] MEDS: LEVOFLOXACIN INJ 750 MG in PREMIX 1 EACH IV SCH (14:00)
[2017-08-08] MEDS: TAMSULOSIN 0.4 MG CAPSULE PO SCH (17:48)
[2017-08-09] MEDS: BUDESONIDE 0.5 MG/2 ML NEB RESP TX SCH (07:17)
[2017-08-09] MEDS: DORNASE ALFA 2.5 MG/2.5 ML VIAL RESP TX SCH (07:17)
[2017-08-09] MEDS: methylPREDNISolone SOD SUC 40 MG/1 ML VIAL IV SCH (09:15)
[2017-08-09] MEDS: DONEPEZIL 10 MG TABLET PO SCH (09:16)
[2017-08-09] MEDS: METOPROLOL TARTRATE 25 MG TABLET PO SCH (09:16)
[2017-08-09] MEDS: MONTELUKAST 10 MG TABLET PO SCH (09:16)
[2017-08-09] MEDS: CHOLECALCIFEROL 1,000 UNIT TABLET PO SCH (09:17)
[2017-08-09] MEDS: PANTOPRAZOLE 40 MG TABLET PO SCH (09:17)
[2017-08-09] MEDS: SIMVASTATIN 40 MG TABLET PO SCH (09:17)
[2017-08-09] MEDS: BUDESONIDE/FORMOTEROL 160-4.5 INHALER 6 GM INH SCH (09:17)
[2017-08-09] MEDS: GABAPENTIN 300 MG CAPSULE PO SCH (09:17)
[2017-08-09] MEDS: FLUTICASONE/SALMETEROL 100-50 DISKUS 14 DOSE INH SCH (09:17)
[2017-08-09] MEDS: ASPIRIN EC 81 MG TABLET PO SCH (09:17)
[2017-08-09] MEDS: OMEGA 3 ACID ETHYL ESTERS 1 GM CAPSULE PO SCH (09:17)
[2017-08-09] MEDS: ENOXAPARIN 30 MG/0.3 ML SYRINGE SUBCUT SCH (09:18)
--- NOTE | 2017-08-09 11:08 | Pulmonology Progress Note ---
Pulmonary - PN: Subj Interval history: Juan Velazquez, [facility], acting as scribe for Dr. Koffi Angelo Mr. Cutris is a 77-year-old white male who we saw in initial pulmonary consultation on 08/05/2017. At that time, our impressions were: 1. Acute left lower lung pneumonia. Probably bacterial 2. COPD/asthma 3. Hyperlipidemia 4. Chronic lumbago 5. Gastroesophageal reflux disease 6. 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 Biventricular assist device. 7. History of sick sinus syndrome that required cardiac pacemaker. 8. Past history of possible cognitive impairment that is improved over time with treatment. 9. Bilateral upper extremity tremor, greater on the right as compared to the left 10. 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 Markedly improved with CPAP 11. Past history of tobacco abuse. Stopped smoking 1993. 08/06/2017. Patient was seen today along with Elizabeth Ronquillo RN. Patient's chest x-ray continues to show an acute left lower lobe pneumonia, however, it is slowly improving with better aeration. Sputum for Gram stain, culture and sensitivity is pending. Cold agglutinins are negative. Legionella, pro- calcitonin, and urine antigen for strep pneumoniae are pending. On chest exam he continues to have loose large airway congestion. He is receiving inhalation therapy. We have asked him to be ambulatory and he agrees. Medications have been reviewed. We made no changes today. Labs been reviewed. White count has fallen to 11,200 with 90.7% segs; H&H 12.7/ 38.6; platelet count 177,000; creatinine has improved to 1.50, BUN 33, electrolytes are normal; hemoglobin A1c 5.6%; calcium 9.2; TSH is low at 0.334 but free T4 is normal at 1.46; fasting lipoprotein profile shows a total cholesterol of 146, LDL 84, HDL 47, and triglycerides 78; BNP 24 08/07/2017. The patient has more large airway wheeze today. He has more large airway congestion also. He needs to expectorate this, so we will add Pulmozyme twice daily. Once this clears, his wheezing were markedly improved. Overall, he feels improved since admission. Again, he is anticipating orthopedic surgery early next week and hopes to be discharged on Saturday. Will repeat chest x-ray tomorrow. Today's chest x-ray continues to show a left lower lobe and lingula infiltrate. Sputum Gram stain showed many gram-negative rods with many white blood cells, but sputum culture grew no organisms. Blood cultures are negative at day 1. Medications have been reviewed. We made no changes today other than the addition of Pulmozyme twice daily. Labs been reviewed. White count is 16,000 with 89.3% segs; H&H 11.6/34.9; platelet count 184,000; creatinine 1.40, BUN 38, electrolytes are normal 08/08/2017. Today we have discussed the case with Dr. Savage and coordinated our care. We both feel that it would probably be in the patient's best interest to put off his planned orthopedic surgery for another week or 2 and continue oral antibiotics[address] Dr. Savage is going [facility] is possible. However, if they cannot get to the patient in a timely manner we would agree to him proceeding next week with his knee replacement. Chest x-ray today shows that his previously noted infiltrate is clearing. He states that he is breathing better. He has remained afebrile. Medications have been reviewed. We made no changes. Labs been reviewed. White count is 15,000 with 80.1% segs; H&H 12.0/36.5; platelet count 177,000; pro-calcitonin obtained at admission was elevated at 0.69; Legionella is still pending 08/09/2017. The patient continues to do well. His infiltrate is resolving on his present antibiotics. Dr. Savage was able to speak with the [place] physician yesterday and his planned orthopedic surgery will be postponed until the end of August. From a pulmonary standpoint, he is suitable for discharge on oral antibiotics. We would recommend Levaquin 500 mg daily for 10 more days and Ceftin 500 mg twice daily for 10 more days. We would also recommend prednisone 10 mg daily for 10 days and 10 mg every other day for 10 doses. He has a scheduled appointment in the future to see Dr. Raman and he can keep that. He will call sooner if needed. Medications have been reviewed. We made no changes. Labs been reviewed. No new labs were drawn today. Exam (Progress Note) - Constitutional Vitals: Period Temp Pulse Resp BP Sys/Bergeron Pulse Ox Last 24 Hr 96.7 F-98.1 F 50-83 16-20 110-148/57-72 93-99 Exam: Chest fairly clear Heart no gallop Abdomen is obese, but nontender and nondistended; bowel sounds are positive 4 Extremities with nothing to suggest acute deep venous thrombophlebitis Psychiatric oriented 3 Neurologic long-term motor function is intact Plan: From a pulmonary standpoint patient could be discharged. We would recommend Levaquin 500 mg daily for 10 days and Ceftin 500 mg twice daily for 10 days. Also, prednisone 10 mg daily for 10 days then 10 mg every other day for 10 doses. He can keep his already scheduled appointment with Dr. Angelo. He will call if he needs to be seen sooner. We will sign off. Please reconsult as needed. Results - Labs CBC & BMP: 08/08/17 05:01 08/07/17 04:55
[2017-08-09 11:12] VITALS: BP 138/58
--- NOTE | 2017-08-09 11:58 | Discharge Summary ---
<Luz Maria Coker - Last Filed: 08/09/17 11:31> Hospital Course - Hospital Course Hospital Course: Mr Curtis 77 y/o w/PMHx HTN, Asthma, pacemaker, CHF, Cardiomyopathy with EF 10% , Sleep Apnea, COPD presented to the ED on 08/05/17 from [facility] for further evaluation of upper respiratory complaints, productive cough(thich white ), shortness of breath, wheezing, fever and body aches. [place] ED: WBC 12.1, BUN 25 , Creatinine 1.60, A1c 5.6. Urinalysis negative for infection. CXR: mild strandy subsegmental atelectasis in the left lung base, mild inflammatory infiltrate cannot be excluded, shallow inspiration. Hospital Medicine consulted for admission: with asthma exacerbation and pneumonia; start IV antibiotics, breathing treatments, blood cultures, consult pulmonary. Influenza A and B are negative. Sputum final culture normal aleja. Blood culture final pending. Pulmonary Consult plan/recommendations: Agreed with antibiotic coverage, solumedrol, breathing treatments, cold agglutinins (were negative), pro- calcitonin 0.69, legionella titer still pending. Will need follow up with clinic after discharge. Today 08/09/17 patient is stable and symptoms improved. CXR showing improvements and labs remain stable. His knee replacement surgery was Re- scheduled for the End of August to allow more time to recover from acute illness. He will be discharged home on oral antibiotics, pulmonary recommends: levaquin 500mg dly x10 days; Ceftin 500mg BID daily x10 more days; with prednisone 10mg dly x10 days then 10mg every other day for 10 doses and will need to followup with Dr Angelo as scheduled. He will need to follow up with [place] [facility] and primary care physician. Further recommendations with discharge planning to follow per Dr Bernal. Specialty Discharge - Follow Up or Referrals Follow up with: Koffi Angelo MD [Physician] - Discharge Plan - Discharge Medications New predniSONE TAB [PredniSONE] 10 mg PO DAILY #20 tablet Cefuroxime Tab [Ceftin] 500 mg PO BID #20 tablet Levofloxacin Tab [Levaquin Tab] 500 mg PO DAILY #10 tablet Continue Fluticasone/Salmeterol 100-50 [Advair 100-50] 1 puff INH BID Valsartan 80 mg PO BEDTIME Tiotropium Inhalation [Spiriva Handihaler] 18 mcg INH DAILY Aspirin EC Tab 81 mg PO DAILY Simvastatin 20 mg PO PC SUPPER Roflumilast [Daliresp] 500 mcg PO DAILY Omeprazole 20 mg PO DAILY Multivitamin with Minerals [Multivitamins with Minerals] 1 each PO DAILY Montelukast Sodium 10 mg PO DAILY Metoprolol Tartrate 12.5 mg PO BID Loratadine Tab [Claritin Tab] 10 mg PO DAILY PRN PRN Reason: Allergy Symptoms Gabapentin Cap/Tab [Neurontin Cap/Tab] 300 mg PO BID Furosemide Tab [Lasix Tab] 20 mg PO DAILY Donepezil HCl 10 mg PO DAILY Cyanocobalamin Inj [Vitamin B12 Inj] 1,000 mcg IM Q30D Budesonide/Formoterol 160-4.5 [Symbicort 160-4.5] 1 puff INH BID Betamethasone Dipropionate [Betamethasone Dipropionate 0.05% Cream] 1 applic TOP BID Albuterol Inhaler [Proventil Inhaler] 1 puff INH Q4H PRN PRN Reason: Shortness Of Breath/Wheezing Tamsulosin [Flomax] 0.4 mg PO PC SUPPER [place]-3/Dha/Epa/Fish Oil [Fish Oil 1,000 mg Softgel] 1 each PO DAILY Cholecalciferol [Vitamin D3] 2,000 unit PO DAILY Allopurinol 100 mg PO BID - Follow Up or Referral Follow Up: Koffi Angelo MD [Physician] - - Forms/Instructions Instructions: Cefuroxime (By mouth), Prednisone (By mouth), Levofloxacin (By mouth), Asthma (DC), Community-acquired Pneumonia (DC) Exam - Constitutional Vitals: Period Temp Pulse Resp BP Sys/Bergeron Pulse Ox Last 24 Hr 96.7 F-97.9 F 50-83 17-20 110-148/57-69 93-99 Discharge Results Procedures and tests throughout hospitalization: Pending Orders 08/05/17 12:33 Blood Culture Stat Labs on day of discharge: Preliminary micro results at discharge 08/05/17 12:33 Blood Culture - Preliminary Blood No growth at 3 days 08/05/17 12:27 Blood Culture - Preliminary Blood No growth at 3 days DS: Provider Date of admission: 08/05/17 11:56 Primary care physician: . No PCP Attending physician on admission: Sandra Hector MD Consults: 08/05/17 13:57 Consult to Physician [CONS] Routine Comment: pneumonia Consulting Provider: Koffi Angelo Person Notified: CONNIE THOMAS Date Notified: 08/05/17 Time Notified: 14:43 08/09/17 11:28 Consult to Case Mgmt/Social Srvs [CONS] Routine Reason for Case Mgmt/Social Srvs: Equipment Consult Comment: home oxygen Discharging clinician: Luz Maria Coker NP <Leah Bernal - Last Filed: 08/09/17 13:15> Discharge Plan - Discharge Data Condition at Discharge: Stable Discharge Diet: heart healthy Activity: resume usual activities as tolerated Hygiene: no restrictions - Forms/Instructions Additional Discharge Instructions: follow up with main provider in 1-2 weeks Exam - Constitutional General appearance: morbidly obese - Head Head exam: Present: normal inspection, normocephalic - Eye Eye exam: Present: EOMI. Absent: conjunctival injection Pupils: Present: LYNN - Respiratory Respiratory exam: Present: clear to auscultation bilaterally. Absent: rales, rhonchi, wheezes - Cardiovascular Cardiovascular exam: Present: regular rate and rhythm. Absent: diastolic murmur , systolic murmur - GI/Abdominal GI/Abdominal exam: Present: normal bowel sounds, soft. Absent: tenderness - Extremities Exam Extremities exam: Absent: edema - Neurological Exam Neurological exam: Present: alert, oriented X3 - Psychiatric Psychiatric exam: Present: normal affect, normal mood - Skin Skin exam: Present: normal color, warm Discharge Results - Impressions Patient is hemodynamically and clinically stable. He is safe for discharge. He will need to follow up with Dr. Angelo as scheduled. Dr. Savage was taking care of him and [facility] could be resched[facility] given his acute event. According to the notes, it will be postponed until the end of AUG. Active Issues: 1. LLL CAP, bacterial: Patient has been seen by pulmonary. He was given antibiotics. Blood cultures were negative. Also influenza was negative as well. He will be discharged on levaquin and ceftin. His most recent chest x-ray from showed improved infiltrate. 2. Acute asthma excerbation: resolved. While inpatient, he received steroids/ bronchodilators. He will be discharged on a long steroid taper per pulmonary. He will also be evaluated for home oxygen. 3. CM, severe with EF of 10% s/p biventricular assist device: euvolemic; he will be discharged on his home heart failure regimen 4. ASCAD: stable; he will be discharged on his home anti ischemic regimen 5. RAMON: on CPAP 6. h/o CKD: stable 7. Disposition: follow up with Dr. Angelo as scheduled and with PCM in 1-2 weeks.
[2017-08-09] MEDS: LEVOFLOXACIN INJ 750 MG in PREMIX 1 EACH IV SCH (13:06)
[2017-08-09 14:22] LABS: ABG Base Excess -1.6 MMOL/L (-2.5-2.5); ABG HCO3 22.9 MMOL/L (20-26); ABG PCO2 34.8 MM HG (35-48); ABG PH 7.414 (7.35-7.45); ABG TCO2 19.6 MMOL/L (23-27); Allen Test Positive
[2017-08-10] MEDS ORDERED: ENOXAPARIN 40 MG/0.4 ML SYRINGE SUBCUT SCH (09:00)
--- NOTE | 2017-08-14 15:28 | Physician Query Form ---
CLICK EDIT DOCUMENT TO SELECT QUERY ANSWER --> OK --> SIGN Marina Gruber RN Clinical Project Management W) [phone] (f) [phone] [email or web address] PROVIDERS: Make your selection(s) from the choices in EACH section by typing an "x" and enter comments in the comment section. Please use your independent medical judgment in providing your response. This request does not imply that any particular answer is desired or expected. CLINICAL INDICATORS: (Providers should not edit this section) Based on documentation of "asthma with acute exacerbation". Pt. treated with IV Solumedrol and Duoneb respiratory treatments. Based on documentation of Asthma, can you please provide further specificity regarding the diagnosis? ( ) Mild intermittent extrinsic asthma with acute exacerbation ( ) Mild persistent extrinsic asthma with acute exacerbation ( ) Moderate persistent extrinsic asthma with acute exacerbation ( ) Severe persistent extrinsic asthma with acute exacerbation ( ) Mild intermittent extrinsic asthma with status asthmaticus ( ) Mild persistent extrinsic asthma with status asthmaticus ( ) Moderate persistent extrinsic asthma with status asthmaticus ( ) Severe intermittent extrinsic asthma with status asthmaticus ( ) Other, please specify: ( X) Clinically unable to determine COMMENTS: PLEASE ALSO DOCUMENT RESPONSE IN PROGRESS NOTES AND/OR DISCHARGE SUMMARY Use of terms such as suspected, likely, or probable (associated with a specific diagnosis that is being evaluated, monitored, or treated as if it exists) are acceptable and can be restated in the discharge summary if not ruled out. MTDD
== END 2017-08-09 14:50 | disposition home or self-care (01) | DRG 190 ==
LOC: N.ED 10:27 → N.EDINP 11:56 → SUATTDRO 11:56 → N.EDINP 12:53 → N.5E 13:05
PROVIDERS: ADMIT Internal Medicine; ATTEND Internal Medicine

== ENCOUNTER 2019-10-23 10:51 | Observation (INO) ==
[2019-10-23] MEDS ORDERED: ONDANSETRON 4 MG/2 ML VIAL IV STA (11:35)
[2019-10-23] MEDS ORDERED: METOCLOPRAMIDE 10 MG/2 ML VIAL IV STA (11:35)
[2019-10-23 12:47] LABS: Basophils % 0.2 % (0.0-0.8); Eosinophils % 0.3 % (0.00-10.9); Hematocrit 42.7 VOL% (42.0-52.0); Hemoglobin 13.3 GM/DL (14.0-18.0); Immature Granulocytes % 0.3 %; Immature Granulocytes Absolute 0.03 #; Lymphocytes # 1.3 10*3/uL (1.4-4.0); Lymphocytes % 14.3 % (21.2-54.2); Mean Corpuscular HGB Conc 31.1 GM/DL (32-36); Mean Corpuscular Volume 89.9 FL (87-102); Monocytes % 8.2 % (1.7-12.7); Neutrophils % 76.7 % (38.7-73.9); Platelet Count 177 T/CUMM (130-400); Red Blood Count 4.75 MC/CUMM (3.8-5.5); Red Cell Distribution Width 14.2 % (9.3-17.3); White Blood Count 8.9 T/CUMM (4-12)
[2019-10-23 13:02] LABS: Albumin 3.1 G/DL (3.4-5.0); Bilirubin,Total 0.4 MG/DL (0.2-1.0); Calcium 9.2 MG/DL (8.5-10.1); Osmolality,Calculated 288.1 MOS/KG (273-304); Total Protein 7.2 G/DL (6.4-8.3)
[2019-10-23 13:19] LABS: Troponin I < 0.015 NG/ML (0.00-0.045)
[2019-10-23] MEDS ORDERED: ONDANSETRON 4 MG/2 ML VIAL IV PRN (13:52)
[2019-10-23] MEDS ORDERED: PROMETHAZINE 25 MG/1 ML VIAL IV PRN (13:52)
[2019-10-23] MEDS ORDERED: traZODone 50 MG TABLET PO PRN (13:52)
[2019-10-23] MEDS ORDERED: ACETAMINOPHEN 325 MG TABLET PO PRN ×2 (13:52→13:55)
[2019-10-23] MEDS ORDERED: PROCHLORPERAZINE 10 MG TABLET PO PRN (13:55)
[2019-10-23] MEDS ORDERED: ALBUTEROL 2.5 MG/3 ML NEB RESP TX PRN (13:55)
[2019-10-23] MEDS ORDERED: DEXTROSE 5% NACL 0.45% 1,000 ML IV SCH (14:00)
[2019-10-23] MEDS ORDERED: CYANOCOBALAMIN 1000 MCG/1 ML VIAL IM SCH (14:00)
[2019-10-23] MEDS: fentaNYL 100 MCG/2 ML VIAL IV STA ×2 (15:30→15:53)
[2019-10-23] MEDS: PANTOPRAZOLE 40 MG TABLET PO SCH ×2 (15:52→15:55)
[2019-10-23] MEDS ORDERED: PANTOPRAZOLE 40 MG TABLET PO ONE (15:53)
[2019-10-23] MEDS: METOCLOPRAMIDE 10 MG/2 ML VIAL IV SCH (17:44)
[2019-10-23] MEDS ORDERED: SIMVASTATIN 20 MG TABLET PO SCH (18:00)
[2019-10-23] MEDS ORDERED: VALSARTAN 80 MG TABLET PO SCH (21:00)
[2019-10-23] MEDS: GABAPENTIN 300 MG CAPSULE PO SCH (21:21)
[2019-10-23] MEDS: FERROUS SULFATE 325 MG TABLET PO SCH (21:22)
[2019-10-23] MEDS: ALLOPURINOL 100 MG TABLET PO SCH (21:22)
[2019-10-23] MEDS: BUDESONIDE/FORMOTEROL 160-4.5 INHALER 6 GM INH SCH (21:22)
[2019-10-23] MEDS: OMEGA 3 ACID ETHYL ESTERS 1 GM CAPSULE PO SCH (21:22)
[2019-10-23] MEDS: BETAMETHASONE DIPR 0.05% CREAM 15 GM TUBE TOP SCH (21:22)
[2019-10-23] MEDS: METOPROLOL TARTRATE 25 MG TABLET PO SCH (21:22)
[2019-10-24] MEDS: METOCLOPRAMIDE 10 MG/2 ML VIAL IV SCH ×2 (00:17→06:17)
[2019-10-24 03:59] LABS: Basophils % 0.1 % (0.0-0.8); Eosinophils # 0.1 10*3/uL (0.0-0.87); Eosinophils % 0.7 % (0.00-10.9); Hematocrit 42.2 VOL% (42.0-52.0); Hemoglobin 12.9 GM/DL (14.0-18.0); Immature Granulocytes % 0.4 %; Immature Granulocytes Absolute 0.03 #; Lymphocytes # 1.7 10*3/uL (1.4-4.0); Lymphocytes % 23.5 % (21.2-54.2); Mean Corpuscular HGB Conc 30.6 GM/DL (32-36); Mean Corpuscular Volume 90.8 FL (87-102); Mean Platelet Volume 9.8 FL (9.6-12.0); Monocytes % 9.4 % (1.7-12.7); Neutrophils % 65.9 % (38.7-73.9); Platelet Count 176 T/CUMM (130-400); Red Blood Count 4.65 MC/CUMM (3.8-5.5); Red Cell Distribution Width 14.3 % (9.3-17.3)
[2019-10-24 04:14] LABS: Calcium 8.6 MG/DL (8.5-10.1)
[2019-10-24] MEDS ORDERED: IPRATROPIUM 500 MCG/2.5 ML NEB RESP TX SCH (07:00)
[2019-10-24 08:17] VITALS: BP 125/49
[2019-10-24] MEDS: ALLOPURINOL 100 MG TABLET PO SCH (08:44)
[2019-10-24] MEDS: FERROUS SULFATE 325 MG TABLET PO SCH (08:44)
[2019-10-24] MEDS: METOPROLOL TARTRATE 25 MG TABLET PO SCH (08:45)
[2019-10-24] MEDS: GABAPENTIN 300 MG CAPSULE PO SCH (08:46)
[2019-10-24] MEDS: BUDESONIDE/FORMOTEROL 160-4.5 INHALER 6 GM INH SCH (08:46)
[2019-10-24] MEDS: BETAMETHASONE DIPR 0.05% CREAM 15 GM TUBE TOP SCH (08:46)
[2019-10-24] MEDS: ASPIRIN EC 81 MG TABLET PO SCH ×2 (08:47→08:50)
[2019-10-24] MEDS: OMEGA 3 ACID ETHYL ESTERS 1 GM CAPSULE PO SCH (08:47)
[2019-10-24] MEDS ORDERED: ROFLUMILAST 500 MCG TABLET PO SCH (09:00)
[2019-10-24] MEDS ORDERED: FOLIC ACID 1 MG TABLET PO SCH (09:00)
[2019-10-24] MEDS ORDERED: DONEPEZIL 10 MG TABLET PO SCH (09:00)
[2019-10-24] MEDS ORDERED: PANTOPRAZOLE 40 MG TABLET PO SCH (09:00)
[2019-10-24] MEDS ORDERED: FUROSEMIDE 20 MG TABLET PO SCH (09:00)
[2019-10-24] MEDS ORDERED: CHOLECALCIFEROL 1,000 UNIT TABLET PO SCH (09:00)
[2019-10-24] MEDS ORDERED: MONTELUKAST 10 MG TABLET PO SCH (09:00)
[2019-10-24] MEDS ORDERED: MULTIVITAMIN (CENTRUM) TABLET PO SCH (09:00)
== END 2019-10-24 10:30 | disposition home or self-care (01) ==
LOC: N.ED 10:51 → N.EDINP 10:51 → N.2W 15:11
PROVIDERS: ADMIT Family Medicine; ATTEND Family Medicine